=== PATIENT | female | born 1995 | race Caucasian/White ===

== ENCOUNTER 2017-06-14 19:23 | Emergency (ER) | payer BC, MEDICAID ==
[~2017-06-14] VITALS: Ht 167.6 cm; Wt 79.5 kg
[2017-06-14 19:31] VITALS: BP 141/76; PULSE 132; RESP 18; TEMP 99.9; O2SAT 100
[2017-06-14 19:40] VITALS: BP 131/77; PULSE 119; RESP 18; O2SAT 100
[2017-06-14] MEDS: SODIUM CHLOR 0.9% 1000 ML INJ 1,000 ML IV SCH ×2 (20:29→21:14)
[2017-06-14] MEDS ORDERED: ONDANSETRON HCL 4 MG/2 ML VIAL IV ONE (20:30)
[2017-06-14] MEDS ORDERED: KETOROLAC TROMETHAMINE 60 MG/2 ML (IM) VIAL IVP ONE (20:30)
[2017-06-14 20:32] LABS: AUTOMATED NEUTROPHIL # 8.1 TH/MM3 (1.8-7.7); BASOPHIL # 0.3 TH/MM3 (0-0.2); BASOPHIL % 2.7 % (0.0-2.0); BILIRUBIN, URINE NEG (NEG); BLOOD, URINE TRACE (NEG); EOSINOPHIL % 0.4 % (0.0-4.0); GLUCOSE,URINE NEG (NEG); HEMATOCRIT 43.8 % (35.0-46.0); HEMOGLOBIN 14.6 GM/DL (11.6-15.3); KETONE, URINE NEG (NEG); LYMPH % 8.5 % (9.0-44.0); LYMPHOCYTE # 0.8 TH/MM3 (1.0-4.8); MEAN CELL VOLUME 88.4 FL (80.0-100.0); MEAN CORPUSCULAR HEMOGLOBIN 29.4 PG (27.0-34.0); MEAN CORPUSCULAR HGB CONC 33.3 % (32.0-36.0); MEAN PLATELET VOLUME 8.1 FL (7.0-11.0); MONO % 3.7 % (0.0-8.0); MONOCYTE # 0.4 TH/MM3 (0-0.9); NEUT % 84.7 % (16.0-70.0); NITRITE,URINE NEG (NEG); PLATELET COUNT 357 TH/MM3 (150-450); RED BLOOD COUNT 4.96 MIL/MM3 (4.00-5.30); RED CELL DISTRIBUTION WIDTH 12.5 % (11.6-17.2); URINE COLOR YELLOW (YELLW/STRAW); URINE LEUKOCYTE ESTERASE NEG (NEG); WHITE BLOOD COUNT 9.6 TH/MM3 (4.0-11.0)
[2017-06-14 20:39] LABS: BACTERIA, URINE MOD /hpf; SQUAMOUS EPITHELIAL CELL URINE > 8 /hpf (0-5); WBC, URINE 0-2 /hpf (0-5)
[2017-06-14 20:40] LABS: CHLORIDE 103 MEQ/L (98-107); SODIUM (NA) 137 MEQ/L (136-145)
[2017-06-14 20:43] LABS: CALCIUM 8.7 MG/DL (8.5-10.1)
[2017-06-14 20:44] LABS: ALBUMIN 3.6 GM/DL (3.4-5.0); BICARBONATE 24.1 MEQ/L (21.0-32.0); BLOOD UREA NITROGEN 9 MG/DL (7-18); GLUCOSE,RANDOM 92 MG/DL (74-106)
[2017-06-14 20:47] LABS: ALT (GPT) 21 U/L (10-53); AST (GOT) 21 U/L (15-37); CREATININE 0.74 MG/DL (0.50-1.00); GLOMERULAR FILTRATION RATE 98 ML/MIN (>89)
[2017-06-14 20:48] LABS: TOTAL BILIRUBIN ADULT 0.5 MG/DL (0.2-1.0); TOTAL PROTEIN 7.8 GM/DL (6.4-8.2)
[2017-06-14 20:49] LABS: ALKALINE PHOSPHATASE 39 U/L (45-117)
[2017-06-14 20:52] LABS: TROPONIN I LESS THAN 0.02 NG/ML (0.02-0.05)
[2017-06-14 21:15] VITALS: BP 108/62; PULSE 98; RESP 18; O2SAT 100
[2017-06-14 21:17] VITALS: RESP 16
[2017-06-14] MEDS ORDERED: ZOFR8TAB PO (21:19)
[2017-06-14] MEDS ORDERED: IBUP-232 PO (21:19)
--- NOTE | 2017-06-14 21:21 | PD ---
HPI Chief Complaint: Chest Pain Time Seen by Provider: 20:06 Travel History International Travel<30 days: No Contact w/Intl Traveler<30days: No Traveled to known affect area: No History of Present Illness HPI The patient is a 22-year-old female that developed sharp, stabbing chest pains, abdominal pains and bilateral leg cramping around 8 AM this morning. She is nauseated but does not vomit. He denies any fever. She states that she cannot be . She claims her leg cramps are the worst pain, I cramping pain and intensity level at 10 over 10. PFSH Past Medical History ?: Not Social History Tobacco Use: No Allergies-Medications (Allergen,Severity, Reaction): Coded Allergies: No Known Allergies (Unverified , 06/14/17) Review of Systems Except as stated in HPI: all other systems reviewed are Neg Physical Exam Narrative GENERAL: The patient is alert, oriented 3 in moderate apparent distress with her chest, abdominal and leg cramping pain. Her vital signs show heart rate of 132, temperature 99.9 and blood pressure 141/76 but the vital signs are otherwise normal. SKIN: Focused skin assessment warm/dry. HEAD: Atraumatic. Normocephalic. EYES: Pupils equal and round. No scleral icterus. No injection or drainage. ENT: No nasal bleeding or discharge. Mucous membranes pink and moist. NECK: Trachea midline. No JVD. CARDIOVASCULAR: Regular rate and rhythm. No murmur appreciated. The patient does have some sternal tenderness and this reproduces the patient's pain. RESPIRATORY: No accessory muscle use. Clear to auscultation. Breath sounds equal bilaterally. GASTROINTESTINAL: Abdomen soft with slight tenderness over the bilateral lower quadrants, nondistended. Hepatic and splenic margins not palpable. No guarding or rebound is present. MUSCULOSKELETAL: No obvious deformities. No clubbing. No cyanosis. No edema. There is tenderness in both of her legs to direct palpation. NEUROLOGICAL: Awake and alert. No obvious cranial nerve deficits. Motor grossly within normal limits. Normal speech. PSYCHIATRIC: Appropriate mood and affect; insight and judgment normal. Data Data Last Documented VS Vital Signs Date Time Temp Pulse Resp B/P (MAP) Pulse Ox O2 Delivery O2 Flow Rate FiO2 06/14/17 19:38 119 20 100 Room Air 06/14/17 19:31 99.9 141/76 (97) Orders Orders Complete Blood Count With Diff (06/14/17 20:14) Comprehensive Metabolic Panel (06/14/17 20:14) Troponin I (06/14/17 20:14) Lipase (06/14/17 20:14) Urinalysis - C+S If Indicated (06/14/17 20:14) Beta Hcg (Quant/Titer) (06/14/17 20:14) Influenzae A/B Antigen (06/14/17 20:14) Ondansetron Inj (Zofran Inj) (06/14/17 20:30) Sodium Chlor 0.9% 1000 Ml Inj (Ns 1000 M (06/14/17 20:30) Ketorolac Inj (Toradol Inj) (06/14/17 20:30) Urine Culture (06/14/17 19:40) Labs Laboratory Tests Test 06/14/17 19:40 White Blood Count 9.6 TH/MM3 Red Blood Count 4.96 MIL/MM3 Hemoglobin 14.6 GM/DL Hematocrit 43.8 % Mean Corpuscular Volume 88.4 FL Mean Corpuscular Hemoglobin 29.4 PG Mean Corpuscular Hemoglobin Concent 33.3 % Red Cell Distribution Width 12.5 % Platelet Count 357 TH/MM3 Mean Platelet Volume 8.1 FL Neutrophils (%) (Auto) 84.7 % Lymphocytes (%) (Auto) 8.5 % Monocytes (%) (Auto) 3.7 % Eosinophils (%) (Auto) 0.4 % Basophils (%) (Auto) 2.7 % Neutrophils # (Auto) 8.1 TH/MM3 Lymphocytes # (Auto) 0.8 TH/MM3 Monocytes # (Auto) 0.4 TH/MM3 Eosinophils # (Auto) 0.0 TH/MM3 Basophils # (Auto) 0.3 TH/MM3 CBC Comment DIFF FINAL Differential Comment Urine Color YELLOW Urine Turbidity CLEAR Urine pH 7.0 Urine Specific Muddy 1.010 Urine Protein TRACE mg/dL Urine Glucose (UA) NEG mg/dL Urine Ketones NEG mg/dL Urine Occult Blood TRACE Urine Nitrite NEG Urine Bilirubin NEG Urine Urobilinogen 0.2 MG/DL Urine Leukocyte Esterase NEG Urine RBC 3-5 /hpf Urine WBC 0-2 /hpf Urine Squamous Epithelial Cells > 8 /hpf Urine Bacteria MOD /hpf Microscopic Urinalysis Comment CULTURE INDICATED Blood Urea Nitrogen 9 MG/DL Creatinine 0.74 MG/DL Random Glucose 92 MG/DL Total Protein 7.8 GM/DL Albumin 3.6 GM/DL Calcium Level 8.7 MG/DL Alkaline Phosphatase 39 U/L Aspartate Amino Transf (AST/SGOT) 21 U/L Alanine Aminotransferase (ALT/SGPT) 21 U/L Total Bilirubin 0.5 MG/DL Sodium Level 137 MEQ/L Potassium Level 3.3 MEQ/L Chloride Level 103 MEQ/L Carbon Dioxide Level 24.1 MEQ/L Anion Gap 10 MEQ/L Estimat Glomerular Filtration Rate 98 ML/MIN Troponin I LESS THAN 0.02 NG/ML Lipase 116 U/L Human Chorionic Gonadotropin, Quant LESS THAN 1 MIU/ML MDM Medical Decision Making Medical Screen Exam Complete: Yes Emergency Medical Condition: Yes Medical Record Reviewed: Yes Interpretation(s) The complete metabolic profile shows a potassium 3.3 but is otherwise unremarkable. The troponin I is normal. The beta-hCG is less than 1. The lipase is normal. Urinalysis is normal except for moderate bacteria and culture is indicated. The CBC is normal. The influenza A/B antigen is negative for flu a and flu B antigen. The EKG shows sinus tachycardia of 120 but is otherwise normal without any acute ST elevation or depression. Differential Diagnosis Nonspecific viral syndrome, flu syndrome, electrolyte disorder, cholecystitis, cholelithiasis, colitis, urinary tract infection, electrolyte imbalance, dehydration, acute coronary syndrome-highly unlikely, appendicitis Narrative Course The patient appears to have a viral syndrome. She was given Toradol 30 mg IV and her pain went from a 10 to a 5. She is also given Zofran for nausea and has no nausea at this time. She also has mild dehydration and likely has a viral gastroenteritis. Diagnosis Primary Impression: Viral syndrome Additional Impressions: Gastroenteritis Mild dehydration Additional Instructions: Stay home and rest and increase your liquid intake. You need to hydrate herself. Take the Zofran every 8 hours, 3 times daily for the first day or 2. Follow-up with a primary care physician next week. Med/Other Pt SpecificInfo: Prescription(s) given Scripts Ondansetron (Zofran) 8 Mg Tab 8 MG PO TID for Nausea/Vomiting, #21 TAB 0 Refills Prov: Sahil Farris MD 06/14/17 Ibuprofen (Ibuprofen) 600 Mg Tab 600 MG PO TID, #33 TAB 0 Refills Prov: Sahil Farris MD 06/14/17 Disposition: 01 DISCHARGE HOME Condition: Stable Sahil Farris MD Jun 14, 2017 21:21
--- NOTE | 2017-06-14 23:38 | EKG ---
Date Performed: 06/14/2017 Time Performed: 19:40:59 PTAGE: 21 years EKG: SINUS TACHYCARDIA MINIMAL ST DEPRESSION ABNORMAL RHYTHM ECG INTERPRETATION BASED ON A DEFAU LT AGE OF 39 YEARS NO PREVIOUS TRACING DOCTOR: Israel Max Interpretating Date/Time 06/14/2017 23:37:03
== END 2017-06-14 21:50 | disposition home or self-care (01) ==
LOC: PHED 19:23
DX: B34.9 Viral infection, unspecified (principal); K52.9 Noninfective gastroenteritis and colitis, unspecified; E86.0 Dehydration; R00.0 Tachycardia, unspecified
CPT/HCPCS: 80053; 81001; 83690; 84484; 84702; 85025; 87086; 87804; 93005; 96361; 96374; 96375; 99284; J1885; J2405; J7030